=== PATIENT | female | born 1970 | race Caucasian/White ===

== ENCOUNTER 2018-01-09 17:38 | Emergency (ER) | payer BC ==
[~2018-01-09] VITALS: Ht 172.7 cm; Wt 132.8 kg
[2018-01-09 17:50] VITALS: BP 203/93; PULSE 90; RESP 16; TEMP 98.5; O2SAT 99
[2018-01-09] MEDS ORDERED: SODIUM CHLOR 0.9% 1000 ML INJ 1,000 ML IV ONE (18:00)
[2018-01-09] MEDS ORDERED: KETOROLAC TROMETHAMINE 30 MG/ML (IVP) VIAL IV PUSH ONE (18:00)
--- NOTE | 2018-01-09 18:17 | PD ---
HPI Chief Complaint: GI Complaint Time Seen by Provider: 17:55 Travel History International Travel<30 days: No Contact w/Intl Traveler<30days: No Traveled to known affect area: No History of Present Illness HPI This is a 47-year-old female who presents to the emergency department lightheaded, fatigued with fevers, chills, vomiting and diarrhea. The patient was at [place] 3 days ago and had to leave the park because she felt overheated. The day after that she continued to feel bad and slept most of the day. This morning she has felt very nauseous and she had a loose stool today and has had subjective fevers and chills. She feels very tired and has no energy. Her symptoms have been constant and severe. [facility] Past Medical History Diabetes: Yes (type 2) ?: Not LMP: 12/09/17 Social History Tobacco Use: No Allergies-Medications (Allergen,Severity, Reaction): Coded Allergies: No Known Allergies (Unverified , 01/09/18) Reported Meds & Prescriptions Reported Meds & Active Scripts Active Reported Lovastatin 40 Mg Tab 40 Mg PO DAILY Pantoprazole (Pantoprazole Sodium) 40 Mg Tab 40 Mg PO DAILY Metformin ER (Metformin HCl) 750 Mg Lio 750 Mg PO TID With evening meal Review of Systems Except as stated in HPI: all other systems reviewed are Neg Physical Exam Narrative GENERAL:Well appearing, no acute distress SKIN: Focused skin assessment warm and dry. HEAD: Atraumatic. Normocephalic. EYES: Pupils equal and round. No injection or drainage. ENT: Moist mucous membranes NECK: Trachea midline. CARDIOVASCULAR: Regular rate and rhythm. No murmur appreciated. RESPIRATORY: Clear to auscultation. Breath sounds equal bilaterally. GASTROINTESTINAL: Abdomen soft, non-tender, nondistended. MUSCULOSKELETAL: No obvious deformities. NEUROLOGICAL: Awake and alert. No obvious cranial nerve deficits. Moving all extremities. PSYCHIATRIC: Appropriate mood and affect; insight and judgment normal. Data Data Last Documented VS Vital Signs Date Time Temp Pulse Resp B/P (MAP) Pulse Ox O2 Delivery O2 Flow Rate FiO2 01/09/18 19:02 92 16 177/91 (119) 98 Room Air 01/09/18 17:50 98.5 Orders Orders Complete Blood Count With Diff (01/09/18 18:00) Comprehensive Metabolic Panel (01/09/18 18:00) Creatine Kinase (Cpk) (01/09/18 18:00) ^ Insert Iv (01/09/18 18:00) Sodium Chlor 0.9% 1000 Ml Inj (Ns 1000 M (01/09/18 18:00) Ketorolac Inj (Toradol Inj) (01/09/18 18:00) Labetalol Inj (Trandate Inj) (01/09/18 18:45) Labs Laboratory Tests Test 01/09/18 18:25 Blood Urea Nitrogen 25 MG/DL Creatinine 0.83 MG/DL Random Glucose 244 MG/DL Total Protein 8.1 GM/DL Albumin 3.9 GM/DL Calcium Level 9.2 MG/DL Alkaline Phosphatase 154 U/L Aspartate Amino Transf (AST/SGOT) 62 U/L Alanine Aminotransferase (ALT/SGPT) 77 U/L Total Bilirubin 0.6 MG/DL Sodium Level 137 MEQ/L Potassium Level 3.5 MEQ/L Chloride Level 102 MEQ/L Carbon Dioxide Level 24.7 MEQ/L Anion Gap 10 MEQ/L Estimat Glomerular Filtration Rate 74 ML/MIN Total Creatine Kinase 137 U/L MDM Medical Decision Making Medical Screen Exam Complete: Yes Emergency Medical Condition: Yes Differential Diagnosis Heatstroke, dehydration, viral syndrome, hypertensive urgency Narrative Course This is a 47-year-old female who presents to the emergency department with malaise, vomiting, diarrhea and headache. She is quite hypertensive. She is placed in a monitor and an IV was established. Labs are pending. Patient is complaining of a mild headache. It is difficult to tell if the patient has a viral syndrome that is precipitating her symptoms or if her symptoms are related to hypertensive urgency. She is well-appearing with a normal neurologic exam so I do not suspect intracranial hemorrhage and I do not think any additional diagnostics are warranted but I think the patient would benefit from low-dose hydrochlorothiazide to go home with and she was given a dose of labetalol and IV fluids in the emergency department. She will follow up with her primary care physician regarding her blood pressure when she returns home. Diagnosis Primary Impression: Hypertension Qualified Codes: I10 - Essential (primary) hypertension Patient Instructions: General Instructions Additional Instructions: If you develop severe chest pain, shortness of breath, sweating, lightheadedness , dizziness or difficulty breathing return to the emergency department immediately. Followup with your primary care physician regarding your blood pressure when you return home. Med/Other Pt SpecificInfo: Prescription(s) given Scripts Hydrochlorothiazide (Hydrochlorothiazide) 25 Mg Tab 25 MG PO DAILY, #30 TAB 0 Refills Prov: Marisol Haddad MD 01/09/18 Disposition: 01 DISCHARGE HOME Condition: Stable Marisol Haddad MD Jan 09, 2018 18:17
[2018-01-09] MEDS ORDERED: PANT40TA3 PO (18:19)
[2018-01-09] MEDS ORDERED: METF750T PO (18:19)
[2018-01-09] MEDS ORDERED: LOVA40TA PO (18:19)
[2018-01-09 18:31] VITALS: BP 174/110; PULSE 84; RESP 16
[2018-01-09 18:43] LABS: AUTOMATED NEUTROPHIL # 12.3 TH/MM3 (1.8-7.7); BASOPHIL # 0.2 TH/MM3 (0-0.2); BASOPHIL % 1.5 % (0.0-2.0); EOSINOPHIL % 0.3 % (0.0-4.0); HEMATOCRIT 42.3 % (35.0-46.0); HEMOGLOBIN 14.6 GM/DL (11.6-15.3); LYMPH % 16.6 % (9.0-44.0); LYMPHOCYTE # 2.6 TH/MM3 (1.0-4.8); MEAN CELL VOLUME 77.1 FL (80.0-100.0); MEAN CORPUSCULAR HEMOGLOBIN 26.6 PG (27.0-34.0); MEAN CORPUSCULAR HGB CONC 34.5 % (32.0-36.0); MEAN PLATELET VOLUME 9.6 FL (7.0-11.0); MONO % 3.6 % (0.0-8.0); MONOCYTE # 0.6 TH/MM3 (0-0.9); PLATELET COUNT 326 TH/MM3 (150-450); RED BLOOD COUNT 5.49 MIL/MM3 (4.00-5.30); RED CELL DISTRIBUTION WIDTH 16.8 % (11.6-17.2); WHITE BLOOD COUNT 15.7 TH/MM3 (4.0-11.0)
[2018-01-09] MEDS ORDERED: LABETALOL HCL 100 MG/20 ML VIAL IV PUSH ONE (18:45)
[2018-01-09 18:53] LABS: CHLORIDE 102 MEQ/L (98-107); SODIUM (NA) 137 MEQ/L (136-145)
[2018-01-09 18:56] LABS: CALCIUM 9.2 MG/DL (8.5-10.1)
[2018-01-09 18:57] LABS: ALBUMIN 3.9 GM/DL (3.4-5.0); BICARBONATE 24.7 MEQ/L (21.0-32.0); BLOOD UREA NITROGEN 25 MG/DL (7-18); GLUCOSE,RANDOM 244 MG/DL (74-106)
[2018-01-09 19:00] LABS: ALT (GPT) 77 U/L (10-53); AST (GOT) 62 U/L (15-37); CREATININE 0.83 MG/DL (0.50-1.00); GLOMERULAR FILTRATION RATE 74 ML/MIN (>89)
[2018-01-09 19:01] LABS: TOTAL BILIRUBIN ADULT 0.6 MG/DL (0.2-1.0); TOTAL PROTEIN 8.1 GM/DL (6.4-8.2)
[2018-01-09 19:02] VITALS: BP 177/91; PULSE 92; RESP 16; O2SAT 98
[2018-01-09 19:02] LABS: ALKALINE PHOSPHATASE 154 U/L (45-117)
[2018-01-09] MEDS ORDERED: HYDR25TA5 PO (19:06)
[2018-01-09 19:22] VITALS: BP 176/97; PULSE 82
[2018-01-09 19:29] VITALS: BP 167/96; PULSE 83
[2018-01-09 20:36] LABS: BLOOD, URINE NEG (NEG); GLUCOSE,URINE 100 mg/dL (NEG); KETONE, URINE 80 OR GREATER mg/dL (NEG); NITRITE,URINE NEG (NEG); URINE COLOR YELLOW (YELLW/STRAW); URINE LEUKOCYTE ESTERASE NEG (NEG)
[2018-01-09 20:46] LABS: BILIRUBIN, URINE NEG (NEG)
[2018-01-09 20:48] LABS: AMORPHOUS SEDIMENT, URINE MOD; BACTERIA, URINE FEW /hpf; MUCUS URINE MOD /lpf (OCC); RBC, URINE 0-3 /hpf (0-3); SQUAMOUS EPITHELIAL CELL URINE > 8 /hpf (0-5)
--- NOTE | 2018-01-09 20:58 | PD ---
Physical Exam Time Seen by Provider: 20:[address] Lieberman left this patient with me to follow-up on the blood pressure and make a disposition. It is now 9 PM and the patient denies any nausea, vomiting, diarrhea or abdominal pain. Data Data Last Documented VS Vital Signs Date Time Temp Pulse Resp B/P (MAP) Pulse Ox O2 Delivery O2 Flow Rate FiO2 01/09/18 19:29 83 167/96 (119) 01/09/18 19:02 16 98 Room Air 01/09/18 17:50 98.5 Orders Orders Complete Blood Count With Diff (01/09/18 18:00) Comprehensive Metabolic Panel (01/09/18 18:00) Creatine Kinase (Cpk) (01/09/18 18:00) ^ Insert Iv (01/09/18 18:00) Sodium Chlor 0.9% 1000 Ml Inj (Ns 1000 M (01/09/18 18:00) Ketorolac Inj (Toradol Inj) (01/09/18 18:00) Labetalol Inj (Trandate Inj) (01/09/18 18:45) Urinalysis - C+S If Indicated (01/09/18 19:55) Labs Laboratory Tests Test 01/09/18 18:25 01/09/18 20:00 White Blood Count 15.7 TH/MM3 Red Blood Count 5.49 MIL/MM3 Hemoglobin 14.6 GM/DL Hematocrit 42.3 % Mean Corpuscular Volume 77.1 FL Mean Corpuscular Hemoglobin 26.6 PG Mean Corpuscular Hemoglobin Concent 34.5 % Red Cell Distribution Width 16.8 % Platelet Count 326 TH/MM3 Mean Platelet Volume 9.6 FL Neutrophils (%) (Auto) 78.0 % Lymphocytes (%) (Auto) 16.6 % Monocytes (%) (Auto) 3.6 % Eosinophils (%) (Auto) 0.3 % Basophils (%) (Auto) 1.5 % Neutrophils # (Auto) 12.3 TH/MM3 Lymphocytes # (Auto) 2.6 TH/MM3 Monocytes # (Auto) 0.6 TH/MM3 Eosinophils # (Auto) 0.0 TH/MM3 Basophils # (Auto) 0.2 TH/MM3 CBC Comment AUTO DIFF Differential Comment AUTO DIFF CONFIRMED Blood Urea Nitrogen 25 MG/DL Creatinine 0.83 MG/DL Random Glucose 244 MG/DL Total Protein 8.1 GM/DL Albumin 3.9 GM/DL Calcium Level 9.2 MG/DL Alkaline Phosphatase 154 U/L Aspartate Amino Transf (AST/SGOT) 62 U/L Alanine Aminotransferase (ALT/SGPT) 77 U/L Total Bilirubin 0.6 MG/DL Sodium Level 137 MEQ/L Potassium Level 3.5 MEQ/L Chloride Level 102 MEQ/L Carbon Dioxide Level 24.7 MEQ/L Anion Gap 10 MEQ/L Estimat Glomerular Filtration Rate 74 ML/MIN Total Creatine Kinase 137 U/L Urine Color YELLOW Urine Turbidity CLEAR Urine pH 6.0 Urine Specific [place] GREATER/EQUAL 1.030 Urine Protein 30 mg/dL Urine Glucose (UA) 100 mg/dL Urine Ketones 80 OR GREATER mg/dL Urine Occult Blood NEG Urine Nitrite NEG Urine Bilirubin NEG Urine Urobilinogen 0.2 MG/DL Urine Leukocyte Esterase NEG Urine RBC 0-3 /hpf Urine WBC 3-5 /hpf Urine Squamous Epithelial Cells > 8 /hpf Urine Amorphous Sediment MOD Urine Bacteria FEW /hpf Urine Mucus MOD /lpf Microscopic Urinalysis Comment CULT NOT INDICATED MDM Medical Record Reviewed: Yes Supervised Visit with YOHANA: Yes Interpretation(s) The urine shows specific gravity greater than 1.030, 30 protein, 100 glucose with 80 or greater ketones but is otherwise normal and cultures not indicated. The CBC shows a white count of 15,700 but is otherwise unremarkable. The complete metabolic profile shows a BUN of 25, GFR of 74, glucose 244 with alkaline phosphatase 154 and G OT 62 and GPT 77. Differential Diagnosis Hypertension poor control, dehydration, electrolyte imbalance, hypo-/ hyperglycemia, gastroenteritis, small bowel obstruction-unlikely diabetes mellitus poor control. Narrative Course The patient does have hypertension, at this time her blood pressure is 173/99. The patient does need to increase her liquid intake. She needs to follow-up with her primary care physician regarding her blood pressure. She should continue to hydrate herself with Gatorade and, once adequately hydrated she can take the hydrochlorothiazide. The patient likely has a gastroenteritis which is likely viral. She needs to increase her liquid intake. Diagnosis Primary Impression: Hypertension Qualified Codes: I10 - Essential (primary) hypertension Additional Impression: Viral gastroenteritis Patient Instructions: General Instructions Additional Instruction: If you develop severe chest pain, shortness of breath, sweating, lightheadedness , dizziness or difficulty breathing return to the emergency department immediately. Followup with your primary care physician regarding your blood pressure when you return home. Med/Other Pt SpecificInfo: Prescription(s) given Scripts Hydrochlorothiazide (Hydrochlorothiazide) 25 Mg Tab 25 MG PO DAILY, #30 TAB 0 Refills Prov: Marisol Haddad MD 01/09/18 Disposition: 01 DISCHARGE HOME Condition: Stable Andres Avery MD Jan 09, 2018 20:58
== END 2018-01-09 21:17 | disposition home or self-care (01) ==
LOC: PHED 17:38
DX: I10 Essential (primary) hypertension (principal); A08.4 Viral intestinal infection, unspecified; R51 Headache; E11.9 Type 2 diabetes mellitus without complications; Z79.899 Other long term (current) drug therapy
CPT/HCPCS: 80053; 81001; 82550; 85025; 96361; 96374; 96375; 99284; J1885; J7030